=== PATIENT | female | born 1975 | race Caucasian/White ===

== ENCOUNTER 2022-09-28 07:59 | Day surgery (SDC) | payer OTHER ==
[~2022-09-28 07:59] MED LIST: Midazolam 1 MG/ML 2 ML SDV ONE; Propofol 200 MG/20 ML SDV ONE; fentaNYL 50 MCG/ML SDV ONE
[2022-09-28] MEDS ORDERED: Sodium Chloride 0.9% 1,000 ML IV SCH (08:30)
[2022-09-28] MEDS ORDERED: Propofol 200 MG/20 ML SDV ONE (09:32)
== END 2022-09-28 10:44 | disposition home or self-care (01) ==
LOC: JP.SDS 07:59
PROVIDERS: ATTEND Surgery
DX: Z12.11 Encounter for screening for malignant neoplasm of colon (principal); K29.70 Gastritis, unspecified, without bleeding; K21.9 Gastro-esophageal reflux disease without esophagitis; K57.30 Diverticulosis of large intestine without perforation or abscess without bleeding; F17.200 Nicotine dependence, unspecified, uncomplicated; Z79.899 Other long term (current) drug therapy; Z88.8 Allergy status to other drugs, medicaments and biological substances
CPT/HCPCS: 43239; 45378; 81025; J2250; J2704; J3010; J7030

== ENCOUNTER 2023-12-30 16:42 | Emergency (ER) | payer OTHER ==
[2023-12-30] MEDS: Diphtheria,Pertussis(Acell),Tetanus Vaccine 0.5 ML Syringe IM ONE (17:39)
[2023-12-30] MEDS: Bacitracin Oint 1 GM U/D Packet TOP ONE (17:40)
[2023-12-30] MEDS: Lidocaine 1% with EPINEPHrine 1:100,000 50 ML MDV SUBCUT ONE (17:43)
== END 2023-12-30 17:55 | disposition home or self-care (01) ==
LOC: JP.ED 16:42
DX: S81.012A Laceration without foreign body, left knee, initial encounter (principal); F17.210 Nicotine dependence, cigarettes, uncomplicated; Z23 Encounter for immunization; Z86.16 Personal history of COVID-19; Z88.8 Allergy status to other drugs, medicaments and biological substances; W31.9XXA Contact with unspecified machinery, initial encounter
CPT/HCPCS: 12002; 90471; 90715; 99282-25